=== PATIENT | male | born 1965 | race Caucasian/White ===

== ENCOUNTER → 2016-12-18 | Outpatient (CLI) | payer OTHER ==
--- NOTE | ~2016-12-18 | MR103 ---
[facility] A Service of [facility] RADIOLOGY TEXT RESULTS PATIENT: ALEXSANDER WETZEL [facility] : 61 UNIT #: [id number] AGE: [address]: MANISHA FRIED SEX: M ORDER DR: [id number] [facility] [address] [place], [place] [address] [id number] O MR#: [id number] Acc #: [id number] NAME: ALEXSANDER WETZEL : 1965 SEX: M STUDY DATE/TIME: 12/18/2016 19:47 UNIT: [facility] ROOM: STUDY DESCRIPTION: MR Knee Wo Contrast Lt Attending Physician: Manisha Fried M.D. Ordering Physician: Lopez Not Listed Primary Care Physician: Joni Albarran M.D. [facility] REPORT This report is preliminary unless electronic signature is present. EXAM MRI left knee, 12/18/2016. COMPARISON Left knee radiographs, 12/11/2016. HISTORY Order states cartilage versus ligament tear. History sheets state left medial knee pain for 8 months from running. Patient claustrophobic; could not hold still. No injury or surgery. FINDINGS There is no effusion or sizable popliteal cyst. There is a small amount of fluid in the medial gastrocnemius-semimembranosus and pes anserine bursae. Findings are compatible with a tiny popliteal cyst and mild pes anserine bursitis. There is no effusion. Patellofemoral alignment is normal. There is equivocal low grade chondromalacia patella (versus motion artifact). Quadriceps and patellar tendons are intact. Cruciate ligaments are normal. The lateral meniscus, lateral collateral ligament complex, and popliteus tendon are intact. The articular cartilage of the lateral compartment is within normal limits. There is a sizable radial tear in the posterior body of the medial meniscus with a small meniscal flap extending towards the medial meniscal femoral gutter. MCL is intact. Medial compartment appears mildly narrowed, [facility] A Service of [facility] RADIOLOGY TEXT RESULTS PATIENT: ALEXSANDER WETZEL [facility] : 61 UNIT #: [id number] AGE: [address]: MANISHA FRIED SEX: M ORDER DR: and there is suspected subtle low grade chondromalacia. There is no marrow lesion, fracture, or sizable loose body. IMPRESSION 1. Sizable radial tear, posterior body, medial meniscus, with a probably tiny meniscal flap extending into the meniscofemoral gutter peripherally. 2. Mild pes anserine bursitis and small popliteal cyst. 3. 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 Patient was reportedly claustrophobic. Dictated by... Mayda Deal M.D. THIS IS AN ELECTRONICALLY VERIFIED REPORT Mayda Deal M.D. at 12/21/2016 11:51 AM Shai TD: 12/20/2016 14:45 JOB #: [id number] [facility] REPORT Page 1 of 1 COPY
== END | disposition home or self-care (01) ==
LOC: CMRI 19:08
DX: S83.242A Other tear of medial meniscus, current injury, left knee, initial encounter (principal); M71.22 Synovial cyst of popliteal space [Baker], left knee; M71.562 Other bursitis, not elsewhere classified, left knee
CPT/HCPCS: 73721